=== PATIENT | female | born 1975 | race Hispanic/Latino ===

== ENCOUNTER 2024-11-22 09:37 | Emergency (ER) | payer SELFPAY ==
[2024-11-22 09:44] VITALS: BP 158/101
--- NOTE | 2024-11-22 10:15 | ED.GENMED ---
History of Present Illness
General
Chief Complaint: Musculo-Skeletal Complaint
Time Seen by Provider: 11/22/24 10:15
History of Present Illness
History of Present Illness:
FOCUSED PAST MEDICAL HISTORY
- The patient has a history of high blood pressure and has had hysterectomy in the past
REVIEW OF OLD RECORDS
- No old records available for review in [facility]
Note:
CHIEF COMPLAINT(S)
Left-sided leg pain.
HISTORY OF PRESENT ILLNESS
The patient is a 49-year-old female presenting with left-sided leg pain. The pain began mildly about 8 days ago without any precipitating trauma. The patient also reports that movement aggravates the pain, specifically when the leg is lifted. There
are no associated symptoms such as bowel or bladder incontinence, retention, or fevers. The patient confirms the absence of any fall or direct trauma to the area. She is able to move her ankle without any increased pain. The clinical presentation is
suggestive of sciatica.
PHYSICAL EXAM
-General: Well appearing but appears somewhat uncomfortable especially with attempted movement of the left lower extremity
-HEENT: Moist oral mucosa
-Neurologic: Excellent strength all extremities, no obvious coordination deficits, excellent strength in both lower extremities
-Psychiatric: Appropriate mental status, normal insight and judgement
-Extremities: Nontender, no edema, moves all extremities equally
-Back: Positive straight leg raise in the left lower extremity
-Skin: No rash, no lesions
PLAN
The plan includes administering a shot of Toradol (Ketorolac), a nonsteroidal anti-inflammatory drug, for immediate relief. A prescription for a course of oral Prednisone, a corticosteroid, will be sent to the patients pharmacy for ongoing
management. The patient is advised that the sciatica can be severe for a week or two, but the steroids and anti-inflammatory medication should aid in alleviating the symptoms. The patient is instructed to follow up with a primary care physician, and
an attempt will be made to provide the name of a local clinic. The patient�s medical insurance status was also addressed during the conversation.
DIFFERENTIAL DIAGNOSIS
The Differential Diagnosis includes, in no particular order and is not limited to:
1. Sciatica
2. Lumbar Radiculopathy
3. Disc Herniation
4. Piriformis Syndrome
5. Lumbar Spondylosis
6. Sacroiliitis
7. Spinal Stenosis
8. Osteoarthritis of the Hip
9. Trochanteric Bursitis
10. Myofascial Pain Syndrome
No clear indication for imaging at this time in the absence of trauma and young age with no significant past medical history and no back pain red flags
SUMMARY OF ENCOUNTER
The patient is a 49-year-old female who presented to the emergency department with sudden onset of left-sided leg pain without any trauma. The clinical presentation is consistent with sciatica. Movement exacerbates the pain especially when lifting
the leg. No associated symptoms such as bowel or bladder dysfunction or fever were reported. An initial management plan was devised to address the symptoms and provide relief.
ASSESSMENT
The patient is exhibiting symptoms consistent with sciatica, likely caused by irritation or compression of the sciatic nerve.
EMERGENCY TREATMENTS ADMINISTERED
The patient received an injection of ketorolac, a nonsteroidal anti-inflammatory drug, for immediate pain relief.
PLAN
A prescription for oral prednisone, a corticosteroid, will be issued to manage inflammation and alleviate symptoms over time. The patient is advised that sciatica can be particularly painful for a week or two, but the medications should help in
reducing the symptoms. Follow-up with a primary care physician is recommended. Information regarding a local clinic for primary care will be provided to the patient.
PATIENT EDUCATION AND COUNSELING
The patient was informed about the nature of sciatica and the likelihood of severe pain for a week or two. The importance of adhering to the prescribed medication regimen to aid in symptom relief was emphasized. The patient was also advised to
consult a primary care physician for continuous management of the condition.
FOLLOW-UP INSTRUCTIONS
The patient is instructed to follow up with a primary care physician, and efforts will be made to provide the name of a local clinic for further care.
MEDICATION RECONCILIATION
- Administered: Ketorolac injection in the emergency department.
- Prescribed: Prednisone course to be taken orally, details will be provided in the prescription sent to the patients pharmacy.
MEDICAL DECISION MAKING
-Complexity of Data Reviewed: The sciatica was identified without additional diagnostic imaging or laboratory tests, based on history and physical examination. Differential diagnosis considered includes sciatica, lumbar radiculopathy, disc
herniation, piriformis syndrome, lumbar spondylosis, sacroiliitis, spinal stenosis, osteoarthritis of the hip, trochanteric bursitis, and myofascial pain syndrome.
-Risk: Prescription medication was prescribed: Prednisone for managing inflammation related to sciatica. The patient was advised of the importance of monitoring for any adverse effects and the necessity of follow-up care.
DIAGNOSIS
Sciatica (ICD-10 code: M54.30)
Of note, biogeographer service was used
Phy Exam
Physical Exam
Physical Exam:
See HPI
Course
Orders/Labs/Results
Orders:
Orders
11/22/24 10:26
Ketorolac [Toradol] 30 mg IM NOW STA
Prednisone [Deltasone] 50 mg PO NOW STA
Vital Signs
Initial and Last Documented VS:
Initial Vital Signs
Temp Pulse Resp BP Pulse Ox
36.6 C 66 16 158/101 98
11/22/24 09:44 11/22/24 09:44 11/22/24 09:44 11/22/24 09:44 11/22/24 09:44
Last Documented Vital Signs
Temp Pulse Resp BP Pulse Ox
36.6 C 66 16 158/101 98
11/22/24 09:44 11/22/24 09:44 11/22/24 09:44 11/22/24 09:44 11/22/24 10:16
*Pulse Oximetry
SaO2: 98
Oxygen Mode of Delivery: Room air
Patient hypoxic: no
*Critical Care Note
Total Time (30-74mins, 75-104mins- exclusive of procedures): Not Applicable
ED Attending Note
-
Portions of this chart may have been created with voice recognition software.� Occasional wrong word or��sound alike� substitutions may have occurred due to the inherent limitations of voice recognition software.
Discharge Plan
Departure
Patient Disposition: Home (Routine Discharge)
Date of Disposition: 11/22/24
Time of Disposition: 10:27
Patient with high blood pressure during this ER visit?: Yes
Discharge Problem:
Sciatica
Instructions: Sciatica - ED (DC), BLOOD PRESSURE
Prescriptions:
New
prednisone 50 mg tablet
50 mg PO DAILY Qty: 4 0RF
Referrals:
[facility] [Outside]
Activity Restrictions/Additional Instructions:
Pr�xima dosis de esteroides ma�lisa. Envi� sandrita receta a fish farmacia. Colt seguimiento con la [facility].
Interventions
Interventions:
*General Assessment Last Done: 11/22/24 09:47
*Neglect/Abuse Screening Last Done: 11/22/24 09:47
Discharge Date and Time
Print Language: ROMANIAN
[2024-11-22] MEDS: DELTASONE 50 MG PO (10:35)
[2024-11-22] MEDS: TORADOL 30 MG IM (10:35)
== END 2024-11-22 11:32 | disposition home or self-care (01) ==
LOC: EMR 09:37
PROVIDERS: EMERGENCY PHYSICIAN Emergency Medicine
DX: M54.32 Sciatica, left side (principal)
CPT/HCPCS: 99284; 96372